=== PATIENT | male | born 1975 | race Caucasian/White ===

== ENCOUNTER 2017-12-03 17:45 | Emergency (ER) | payer OTHER ==
--- NOTE | 2017-12-03 18:53 | EDPHY ---
H & P Time Seen by Provider: 12/03/17 18:52 HPI/ROS: Chief complaint. Facial numbness HPI. 42-year-old male presents emergency department complaints of initially some numbness or tingling to his left cheek. Symptoms began 4 days ago. Within 1-2 hours he noticed that his left eye did not seem to be blinking. His left eye felt dry. He has some continuing tingling numbness to his left upper lip and decrease taste to the left side of his tongue. Vision is okay. No headache. Upper respiratory infection 1 month ago. Recent travel to [place] and [place] but was in [place]. No tick bites. He has not ever had herpes. Otherwise no fever, chest discomfort, trouble breathing. No weakness or numbness to arms or legs ROS 10 systems were reviewed and negative with the exception of the elements mentioned in the history of present illness Past Medical/Surgical History: Healthy Social History: , nonsmoker, no alcohol Smoking Status: Never smoked Physical Exam: General Appearance: Alert pleasant well-developed male mild distress vital signs are stable Eyes: Pupils equal and round no pallor or injection. ENT, tympanic membranes are normal. There is no vesicles noted in the canal or on the ear. Respiratory: There are no retractions, lungs are clear to auscultation. Cardiovascular: Regular rate and rhythm. Gastrointestinal: Abdomen is soft and nontender, no masses, bowel sounds normal. Neurological: Awake and alert, patient has left facial weakness and left lip droop. Forehead is involved. Difficulty closing the left eye. Skin: Warm and dry, no rashes. No vesicles noted Musculoskeletal: Neck is supple nontender. Extremities symmetrical, full range of motion. Psychiatric: Patient is oriented X 3, there is no agitation. Constitutional: Initial Vital Signs Temperature (C) 36.7 C 12/03/17 17:47 Heart Rate 91 12/03/17 17:47 Respiratory Rate 16 12/03/17 17:47 Blood Pressure 133/88 H 12/03/17 17:47 O2 Sat (%) 97 12/03/17 17:47 O2 Delivery Mode Room Air,Nasal Cannula Allergies/Adverse Reactions: azithromycin Allergy (Verified 12/03/17 17:46) Home Medications: Medication Instructions Recorded Acyclovir 800 mg PO 5XD #35 tab 12/03/17 Valacyclovir HCl [Valtrex] 1,000 mg PO TID #21 tab 12/03/17 predniSONE 60 mg PO DAILY #7 tablet 12/03/17 Medical Decision Making Procedures: Prednisone and Valacyclovir in the emergency department ED Course/Re-evaluation: Patient and I discussed treatment plan including criteria for return importance of follow-up further evaluation. He expresses understanding and agreement Differential Diagnosis: This appears to be Faulkner's palsy. I considered central causes of his facial weakness but forehead is involved and consistent with a 7th nerve palsy. Patient has had symptoms for 4 days. We discussed full and partial recovery Departure - Departure Disposition: Home, Routine, Self-Care Clinical Impression: Faulkner's palsy Condition: Good Instructions: Faulkner Palsy (ED) Additional Instructions: Prednisone each day for 7 days. Valtrex in addition as antiviral therapy. Valtrex is the better medication for antiviral therapy but it is quite expensive so I will also write you a prescription for acyclovir which is similar and less expensive Lubrication to your left eye and tape it closed while sleeping to prevent it from drying out Return for worsening symptoms Call neurologist tomorrow to arrange follow-up in the next 2-3 days. Otherwise follow up with your regular PCP Referrals: Chris Bianchi DO [Doctor of Osteopathy] - 2-3 days, call for appt. Margarita Harper PA [Primary Care Provider] - 2-3 days, call for appt. Prescriptions: Acyclovir 800 mg PO 5XD #35 tab predniSONE 60 mg PO DAILY #7 tablet Valacyclovir HCl [Valtrex] 1,000 mg PO TID #21 tab
[2017-12-03] MEDS ORDERED: predniSONE 20 MG TAB PO ONE (19:10)
[2017-12-03] MEDS ORDERED: valACYclovir 500 MG TAB PO ONE (19:10)
[2017-12-03 19:34] VITALS: BP 124/78
== END 2017-12-03 19:33 | disposition home or self-care (01) ==
DX: G51.0 Bell's palsy (principal)
CPT/HCPCS: J7512